=== PATIENT | female | born 1950 | race Caucasian/White ===

== ENCOUNTER 2019-02-10 10:21 | Day surgery (SDC) | payer MEDICARE, OTHER ==
[2019-02-10] MEDS: SOD CHLORIDE 0.9% 1,000 ML IV (10:59)
[2019-02-10] MEDS ORDERED: DEXAMETHASONE 4 MG/ML 1 ML INJ (12:37)
[2019-02-10] MEDS ORDERED: FENTAnyl 50 MCG/ML VIAL (12:57)
[2019-02-10] MEDS ORDERED: ALBUTEROL 0.083% (NEB) 2.5 MG/3 ML AMP HHN (13:00)
[2019-02-10] MEDS ORDERED: DIPHENHYDRAMINE 50 MG INJ IV (13:00)
[2019-02-10] MEDS ORDERED: FENTAnyl 50 MCG/ML VIAL IV ×3 (13:00)
[2019-02-10] MEDS ORDERED: LABETALOL HCL 20MG INJ IV (13:00)
[2019-02-10] MEDS ORDERED: MEPERIDINE 25 MG INJ IV (13:00)
[2019-02-10] MEDS ORDERED: IPRATROPIUM (NEB) 0.5 MG/2.5 ML AMP HHN (13:00)
[2019-02-10] MEDS ORDERED: HYDROmorphONE 1 MG/5 ML IV SYRINGE IV (13:00)
[2019-02-10] MEDS ORDERED: hydrALAzine 20 MG INJ IV (13:00)
[2019-02-10] MEDS ORDERED: OXYCODONE/ACETAMINOPHEN (5/325) TAB PO (13:00)
[2019-02-10] MEDS ORDERED: EPHEDrine 25 MG/5 ML SYG IV (13:00)
[2019-02-10] MEDS: BUPIVACAINE 0.5% (SDV) 30 ML INJ (13:10)
[2019-02-10] MEDS ORDERED: LIDOCAINE 100 MG SYRINGE (13:30)
[2019-02-10] MEDS ORDERED: PROPOFOL 20 ML (13:30)
[2019-02-10] MEDS: BACITRACIN/POLYMYXIN 28.35 GM OINT TOP (13:51)
[2019-02-10] MEDS: ONDANSETRON 4 MG INJ IV (14:20)
[2019-02-10] MEDS: OXYCODONE/ACETAMINOPHEN (5/325) TAB PO (14:20)
[2019-02-10] MEDS: HYDROmorphONE 1 MG/5 ML IV SYRINGE IV (14:32)
== END 2019-02-10 15:55 | disposition home or self-care (01) ==
LOC: SDS 10:21
DX: M20.41 Other hammer toe(s) (acquired), right foot (principal); M77.41 Metatarsalgia, right foot; E11.9 Type 2 diabetes mellitus without complications; I10 Essential (primary) hypertension; E03.9 Hypothyroidism, unspecified; Z79.84 Long term (current) use of oral hypoglycemic drugs
CPT/HCPCS: 28285; 82962